=== PATIENT | male | born 2000 | race Caucasian/White ===

== ENCOUNTER 2019-08-11 21:09 | Emergency (ER) | payer OTHER ==
[~2019-08-11] VITALS: Ht 177.8 cm; Wt 96.2 kg
[2019-08-12] MEDS ORDERED: SYMBICORT 16010.2 GM IH (01:05)
[2019-08-12] MEDS ORDERED: ZYNCOF 20-400120 ML PO (01:05)
[2019-08-12] MEDS ORDERED: ALBUTEROL2.5 MG/3 M IH (01:05)
[2019-08-12] MEDS ORDERED: SINGULAIR 10MG10 MG PO (01:05)
== END 2019-08-12 01:24 ==
LOC: ER 21:09
DX: J45.998 Other asthma (principal); R42 Dizziness and giddiness; R11.11 Vomiting without nausea